=== PATIENT | female | born 1945 | race Caucasian/White ===

== ENCOUNTER 2019-07-24 22:27 | Observation (INO) | payer MEDICARE ==
[2019-07-24] MEDS ORDERED: TOPICAL LIDOCAINE W/ EPI 5 ML TOP ONE (22:33)
--- NOTE | 2019-07-24 22:38 | Emergency Department Record ---
History of Present Illness - General Chief complaint: Nosebleed/epistaxis Stated complaint: NOSE BLEED Time Seen by Provider: 07/24/19 22:33 Source: Patient Mode of Arrival: Ambulatory Limitations: No limitations - History of Present Illness Initial comments: 74 yo female presents to ED for evaluation of a nose bleed from the left nare that began almost 3 hours ago. 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 Patient denies injury or trauma to the nose, bleeding began after sneezing this evening. Patient denies use of anticoagulation medications. Patient reports that she is usually able to get her bleeding stopped at home. Patient does not see an ENT regularly. MD complaint: Epistaxis Onset/Timin -: Hour(s) Location: Nose Severity: Moderate Consistency: Constant Improves with: Pressure Worsens with: None Context-Epistaxis: History of similar - Related Data Home Medications Medication Instructions Recorded Confirmed Last Taken Denosumab [Prolia] 60 mg SQ 07/24/19 06/04/17 Allergies Allergy/AdvReac Type Severity Reaction Status Date / Time No Known Drug Allergies Allergy Verified 07/24/19 22:33 Travel Screening - Travel/Exposure Within Last 30 Days Have you traveled within the last 30 days?: No - Travel/Exposure Within Last Year Have you traveled outside the [place] in the last year?: No - Additonal Travel Details Have you been exposed to anyone with a communicable illness?: No Review of Systems Constitutional: Denies: Chills, Fever, Malaise, Night sweats Eyes: Denies: Eye discharge, Eye pain ENT: Reports: Epistaxis. Denies: Congestion, Ear pain Respiratory: Denies: Cough, Dyspnea Cardiovascular: Denies: Chest pain, Dyspnea on exertion Endocrine: Denies: Fatigue, Heat or cold intolerance Gastrointestinal: Denies: Abdominal pain, Nausea, Vomiting Genitourinary: Denies: Incontinence, Retention Musculoskeletal: Denies: Arthralgia, Back pain Skin: Denies: Bruising, Change in color Neurological: Denies: Abnormal gait, Confusion, Headache, Tingling, Tremors Psychiatric: Denies: Anxiety Hematological/Lymphatic: Reports: Easy bleeding. Denies: Anemia, Blood Clots Past Medical History - SOCIAL HISTORY Smoking Status: Never smoker Family Medical History Any Significant Family History?: No Physical Exam - General General Appearance: Alert, Oriented x3, Cooperative, Mild distress Limitations: No limitations - Head Head exam: Atraumatic, Normocephalic, Normal inspection Head exam detail: negative: Abrasion, Contusion, York's sign, General tenderness, Hematoma, Laceration - Eye Eye exam: Normal appearance. negative: Conjunctival injection, Periorbital swelling, Periorbital tenderness, Scleral icterus - ENT Ear exam: negative: Auricular hematoma, Auricular trauma Nasal Exam: Dried blood. negative: Discharge, Foreign body Mouth exam: negative: Drooling, Laceration, Muffled voice, Tongue elevation - Neck Neck exam: Normal inspection. negative: Meningismus, Tenderness - Respiratory Respiratory exam: Normal lung sounds bilaterally. negative: Respiratory distress, Rhonchi, Stridor, Wheezes - Cardiovascular Cardiovascular Exam: Normal rhythm, Normal heart sounds, Tachycardia - GI/Abdominal GI/Abdominal exam: Soft. negative: Rebound, Rigid, Tenderness - Rectal Rectal exam: Deferred - exam: Deferred - Extremities Extremities exam: negative: Pedal edema, Tenderness - Neurological Neurological exam: Alert, Oriented X3. negative: Motor sensory deficit - Psychiatric Psychiatric exam: Normal affect, Normal mood - Skin Skin exam: Normal color. negative: Abrasion Type of lesion: negative: abrasion Course - Reevaluation(s) Reevaluation #1: 07/24/19 22:56 TLE-soaked cotton balls were removed from the left nare, no active bleeding is present. There does appear to be clots deep within the left nare. Risk and benefit of placing anterior pack vs. leaving the left nare open (and return for re-bleeding) were discussed, patient is declining anterior packing at this time. Will monitor in ED for another 30 minutes for re-bleeding symptoms. Reevaluation #2: 07/24/19 23:38 Patient's Hgb 6.8 Will type and screen, transfuse 2 Units PRBCs Will admit the patient for further evaluation and repeat H&H in the morning. Reevaluation #3: 07/25/19 06:46 Case was discussed with Nohemy Ace NP, will accept admission at this time. Medical Decision Making - Lab Data Result diagrams: 07/24/19 23:25 Disposition Disposition: Admit Clinical Impression: Epistaxis, recurrent Anemia Qualifiers: Anemia type: unspecified type Qualified Code(s): D64.9 - Anemia, unspecified Disposition: Still a Patient at [facility] Decision to Admit: Admit from ER Decision to Admit Date: 07/24/19 Decision to Admit Time: 23:39 Condition: (2) Stable Time of Disposition: 23:40 Quality - Quality Measures Quality Measures: N/A - Blood Pressure Screening Does Patient Have Any of the Following: No Blood Pressure Classification: Normal BP Reading Systolic Measurement: 96 Diastolic Measurement: 53 Screening for High Blood Pressure: < Normal BP, F/U Not Required > [G8783]
[2019-07-24 23:29] LABS: HEMATOCRIT 23.7 % (35.0-47.0)
[2019-07-24 23:36] LABS: HEMOGLOBIN 6.8 gm/dl (11.6-16.0)
[2019-07-25 00:40] LABS: ABO GROUP A; RH TYPE POSITIVE
[2019-07-25 00:44] LABS: ANTIBODY SCREEN NEGATIVE (NEGATIVE)
[2019-07-25] MEDS ORDERED: LEVETIRACETAM 500 MG TABLET PO SCH (00:45)
[2019-07-25 00:50] LABS: IMMED. SPIN CROSSMATCH COMPATIBLE
[2019-07-25] MEDS: LEVETIRACETAM 500 MG TABLET PO SCH ×2 (00:50→09:56)
[2019-07-25] MEDS ORDERED: SIMVASTATIN 10MG TABLET PO SCH (00:55)
[2019-07-25 04:30] LABS: IMMED. SPIN CROSSMATCH COMPATIBLE
--- NOTE | 2019-07-25 10:04 | History & Physical ---
History of Present Illness - Date of Service Date of Service for History & Physical: 07/25/19 - History of Present Illness Admitting Diagnosis: Anterior epistaxis. Severe anemia History of Present Illness: 74 yo female presents for uncontrolled nose bleed for 3 hours. 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 Pt attempted direct pressure but bleeding was significant and presented to [facility] ER. Pt reportedly refused packing, direct pressure was able to stop bleeding but H-H was 6.8-23.7. Pt states she was eating, sneezed with food in her mouth and the nose began bleeding heavier than normal. 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 Cervical disc fusion r/t trauma. 07/25/19 Pt resting comfortably in bed, no active bleeding noted right nare. Pt does have upper extremity weakness any ataxia. Moving lower extremities without difficulty. Lungs CTA, heart rate reg V/ murmur noted. Pulses +3 upper and lower. No edema, no SOB, pt denies pain. Ordering BMP, CBC and possible d/c to have pt f/u with PCP within 1 week. Pt suggested to follow with ENT. PCP Luis Travel Screening - Travel/Exposure Within Last 30 Days Have you traveled within the last 30 days?: No Location Detail:: [facility] - Travel/Exposure Within Last Year Have you traveled outside the [place] in the last year?: No - Additonal Travel Details Have you been exposed to anyone with a communicable illness?: No - Travel Symptoms Symptom Screening: None Review of Systems Constitutional: Denies: Chills, Fever, Malaise, Night sweats Eyes: Denies: Eye discharge, Eye pain ENT: Reports: Epistaxis. Denies: Congestion, Ear pain Respiratory: Denies: Cough, Dyspnea Cardiovascular: Denies: Chest pain, Dyspnea on exertion Endocrine: Denies: Fatigue, Heat or cold intolerance Gastrointestinal: Denies: Abdominal pain, Nausea, Vomiting Genitourinary: Denies: Incontinence, Retention Musculoskeletal: Denies: Arthralgia, Back pain Skin: Denies: Bruising, Change in color Neurological: Denies: Abnormal gait, Confusion, Headache, Tingling, Tremors Psychiatric: Denies: Anxiety Hematological/Lymphatic: Reports: Easy bleeding. Denies: Anemia, Blood Clots Past Medical History - SOCIAL HISTORY Smoking Status: Never smoker - RESPIRATORY Hx Respiratory Disorders: No - CARDIOVASCULAR Hx Cardio Disorders: Yes Hx Irregular Heartbeat: Yes (h/o afib) Comment:: aortic dissection w/valve replacement 2003; carotid dissection - NEURO Hx CVA: Yes (during heart surgery) Hx Seizures: Yes - GI Hx GI Disorders: No Hx Wt Loss/Wt Gain: Yes (after femur fx in December 2018) - Hx Genitourinary Disorders: No - ENDOCRINE Hx Endocrine Disorders: No - MUSCULOSKELETAL Hx Musculoskeletal Disorders: Yes Hx Back Injury: Yes (cervical fx and fusion) Hx Osteoporosis: Yes - PSYCH Hx Psych Problems: Yes Hx Depression: Yes - HEMATOLOGY/ONCOLOGY Hx Hematology/Oncology Disorders: Yes Hx Anemia: Yes Hx Blood Disorders: Yes (Xmyse-Uamox-Wihwb Syndrome) Hx Bruising: Yes Hx Blood Transfusions: Yes Hx Blood Transfusion Reaction: No Family Medical History Any Significant Family History?: No H&P Meds/Allergies - Allergies Allergies: Allergies Allergy/AdvReac Type Severity Reaction Status Date / Time No Known Drug Allergies Allergy Verified 07/24/19 22:33 - Home Medications Home Medications Medication Instructions Recorded Confirmed Last Taken Denosumab [Prolia] 60 mg SQ 07/24/19 06/04/17 - Active Medications Active Medications: Current Medications Levetiracetam (Keppra) 1,500 mg PO 0900,2100 [facility] Last Admin: 07/25/19 09:56 Dose: 1,500 mg Documented by: Simvastatin (Zocor) 20 mg PO QHS [facility] Physical Exam - Vital Signs Vital Signs: Vital Signs - Last 24 Hrs Temp Pulse Pulse Resp BP Pulse Ox 07/25/19 07:19 97.7 F 72 16 93/42 98 07/25/19 04:00 97.7 F 86 18 96/53 96 07/25/19 00:46 97.9 F 101 H 18 96/44 96 07/24/19 23:12 105 H 16 89/53 97 07/24/19 22:28 98.0 F 113 H 18 100/66 99 - General General Appearance: Alert, Oriented x3, Cooperative, No acute distress Limitations: No limitations - Head Head exam: Atraumatic, Normocephalic, Normal inspection Head exam detail: negative: Abrasion, Contusion, York's sign, General tenderness, Hematoma, Laceration - Eye Eye exam: Normal appearance. negative: Conjunctival injection, Periorbital swelling, Periorbital tenderness, Scleral icterus - ENT Ear exam: negative: Auricular hematoma, Auricular trauma Nasal Exam: Dried blood. negative: Active bleeding, Discharge, Foreign body Mouth exam: negative: Drooling, Laceration, Muffled voice, Tongue elevation - Neck Neck exam: Normal inspection. negative: Meningismus, Tenderness - Respiratory Respiratory exam: Normal lung sounds bilaterally. negative: Respiratory distress, Rhonchi, Stridor, Wheezes - Cardiovascular Cardiovascular Exam: Regular rate, Normal rhythm, Systolic murmur Peripheral Pulses: 3+: Radial (R), Radial (L), Dorsalis Pedis (R), Dorsalis Pedis (L) - GI/Abdominal GI/Abdominal exam: Soft. negative: Rebound, Rigid, Tenderness - Rectal Rectal exam: Deferred - exam: Deferred - Extremities Extremities exam: negative: Pedal edema, Tenderness - Neurological Neurological exam: Alert, Oriented X3. negative: Motor sensory deficit - Psychiatric Psychiatric exam: Normal affect, Normal mood - Skin Skin exam: Normal color. negative: Abrasion Type of lesion: negative: abrasion Results - Labs Result Diagrams: 07/25/19 09:52 Labs Last 24 Hours: Laboratory Results - last 24 hr 07/24/19 07/24/19 07/25/19 23:25 23:45 03:45 Hgb 6.8 L* Hct 23.7 L ABO Group Rh Factor Antibody Screen Crossmatch Yes Yes 07/25/19 23:45 Hgb Hct ABO Group A Rh Factor Positive Antibody Screen Negative Crossmatch VTE H&P Assessment - Risk for VTE Risk for VTE: Yes Risk Level: High Risk Assessment Date: 07/25/19 Risk Assessment Time: 10:39 VTE Orders Placed or Will Be Placed: No VTE Reason for No Prophylaxis: Contraindicated (recent active bleeding) Plan - Detailed Diagnosis and Plan (1) Anemia Current Visit: Yes Status: Acute Qualifiers: Anemia type: unspecified type Qualified Code(s): D64.9 - Anemia, unspecified Base Code: D64.9 - ANEMIA, UNSPECIFIED Comment: 07/25/19 -pt reports normal Hgb is 10, 6.8 after 3 hrs active bleeding from right nare -2 units PRBC given, no s/s reaction -repeating labs and potential d/c to have pt f/u with PCP 07/29/19 Hgb 6.8->9.1 Hct 237.->29.5 (2) Epistaxis, recurrent Current Visit: Yes Status: Acute Base Code: R04.0 - EPISTAXIS Comment: 07/25/19 -pt has Bgvzk-Lxkru-rkycc syndrome, causing daily nose bleeds but usually controlled with direct pressure -after 3 hours of active bleeding, pt presented to [facility] ER and bleeding stopped with direct pressure as pt refused packing -bleeding caused anemia req 2 units PRBCs (3) Epilepsy Current Visit: Yes Status: Acute Base Code: G40.909 - EPILEPSY, UNSP, NOT INTRACTABLE, WITHOUT STATUS EPILEPTICUS Comment: 07/25/19 -continue Keppra dosing -seizure precautions maintained (4) DVT prophylaxis Current Visit: Yes Status: Acute Base Code: Z29.9 - ENCOUNTER FOR PROPHYLACTIC MEASURES, UNSPECIFIED Comment: 07/25/19 -high risk for DVT with pt h/o of CVA but recent active bleeding req blood transfusion, contraindicated for anticoagulation tx (5) Full code status Current Visit: Yes Status: Acute Base Code: Z78.9 - OTHER SPECIFIED HEALTH STATUS Comment: 07/25/19 -full code
[2019-07-25 10:11] LABS: ABSOLUTE NEUTROPHIL COUNT 2.74; BASO % 0.7 % (0-6); EOS % 2.2 % (0-6); GRAN % 67.9 % (47-80); HEMATOCRIT 29.5 % (35.0-47.0); HEMOGLOBIN 9.1 gm/dl (11.6-16.0); LYMPH % 19.8 % (16-45); MEAN CELL VOLUME 75.6 fl (81-97); MEAN CORPUSCULAR HEMOGLOBIN 23.3 pg (27-33); MEAN CORPUSCULAR HGB CONC 30.8 g/dl (32-36); MEAN PLATELET VOLUME 9.1 fl (7.4-10.4); MONO % 9.4 % (0-9); PLATELET COUNT 176 K/uL (130-400); RED CELL DISTRIBUTION WIDTH 19.7 % (11.5-14.5)
--- NOTE | 2019-07-25 10:50 | Discharge Summary ---
Providers Discharge Summary Date: 07/25/19 Date of admission: 07/25/19 00:10 Expected Date of Discharge: 07/25/19 Attending physician: ZARIA TIERNEY Primary care physician: MARK STARKS D.O. Physical Exam - Vital Signs Vital Signs: Vital Signs - Last 24 Hrs Temp Pulse Pulse Resp BP Pulse Ox 07/25/19 09:00 16 07/25/19 07:19 97.7 F 72 16 93/42 98 07/25/19 04:00 97.7 F 86 18 96/53 96 07/25/19 00:46 97.9 F 101 H 18 96/44 96 07/24/19 23:12 105 H 16 89/53 97 07/24/19 22:28 98.0 F 113 H 18 100/66 99 - General General Appearance: Alert, Oriented x3, Cooperative, No acute distress Limitations: No limitations - Head Head exam: Atraumatic, Normocephalic, Normal inspection Head exam detail: negative: Abrasion, Contusion, York's sign, General tenderness, Hematoma, Laceration - Eye Eye exam: Normal appearance. negative: Conjunctival injection, Periorbital swelling, Periorbital tenderness, Scleral icterus - ENT Ear exam: negative: Auricular hematoma, Auricular trauma Nasal Exam: Dried blood. negative: Active bleeding, Discharge, Foreign body Mouth exam: negative: Drooling, Laceration, Muffled voice, Tongue elevation - Neck Neck exam: Normal inspection. negative: Meningismus, Tenderness - Respiratory Respiratory exam: Normal lung sounds bilaterally. negative: Respiratory distress, Rhonchi, Stridor, Wheezes - Cardiovascular Cardiovascular Exam: Regular rate, Normal rhythm, Systolic murmur Peripheral Pulses: 3+: Radial (R), Radial (L), Dorsalis Pedis (R), Dorsalis Pedis (L) - GI/Abdominal GI/Abdominal exam: Soft. negative: Rebound, Rigid, Tenderness - Rectal Rectal exam: Deferred - exam: Deferred - Extremities Extremities exam: negative: Pedal edema, Tenderness - Neurological Neurological exam: Alert, Oriented X3. negative: Motor sensory deficit - Psychiatric Psychiatric exam: Normal affect, Normal mood - Skin Skin exam: Normal color. negative: Abrasion Type of lesion: negative: abrasion Hospitalization - Hospitalization Admission Diagnosis: Anterior epistaxis. Severe anemia - Problem List/Discharge Diagnosis (1) Anemia Current Visit: Yes Status: Acute Discharge Diagnosis: Anemia type: unspecified type Qualified Code(s): D64.9 - Anemia, unspecified Base Code: D64.9 - ANEMIA, UNSPECIFIED Comment: 07/25/19 -pt reports normal Hgb is 10, 6.8 after 3 hrs active bleeding from right nare -2 units PRBC given, no s/s reaction -repeating labs and potential d/c to have pt f/u with PCP 07/29/19 Hgb 6.8->9.1 Hct 237.->29.5 (2) Epistaxis, recurrent Current Visit: Yes Status: Acute Base Code: R04.0 - EPISTAXIS Comment: 07/25/19 -pt has Rwblw-Xmiww-oxjds syndrome, causing daily nose bleeds but usually controlled with direct pressure -after 3 hours of active bleeding, pt presented to [facility] ER and bleeding stopped with direct pressure as pt refused packing -bleeding caused anemia req 2 units PRBCs (3) Epilepsy Current Visit: Yes Status: Acute Base Code: G40.909 - EPILEPSY, UNSP, NOT INTRACTABLE, WITHOUT STATUS EPILEPTICUS Comment: 07/25/19 -continue Keppra dosing -seizure precautions maintained (4) DVT prophylaxis Current Visit: Yes Status: Acute Base Code: Z29.9 - ENCOUNTER FOR PROPHYLACTIC MEASURES, UNSPECIFIED Comment: 07/25/19 -high risk for DVT with pt h/o of CVA but recent active bleeding req blood transfusion, contraindicated for anticoagulation tx (5) Full code status Current Visit: Yes Status: Acute Base Code: Z78.9 - OTHER SPECIFIED HEALTH STATUS Comment: 07/25/19 -full code - Hospitalization Course Hospital Course: 74 yo female presents for uncontrolled nose bleed for 3 hours. 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 Pt attempted direct pressure but bleeding was significant and presented to [facility] ER. Pt reportedly refused packing, direct pressure was able to stop bleeding but H-H was 6.8-23.7. Pt states she was eating, sneezed with food in her mouth and the nose began bleeding heavier than normal. 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 Cervical disc fusion r/t trauma. 07/25/19 Pt resting comfortably in bed, no active bleeding noted right nare. Pt does have upper extremity weakness any ataxia. Moving lower extremities without difficulty. Lungs CTA, heart rate reg V/ murmur noted. Pulses +3 upper and lower. No edema, no SOB, pt denies pain. Ordering BMP, CBC and possible d/c to have pt f/u with PCP within 1 week. Pt suggested to follow with ENT. PCP Luis Abnormal Labs: Abnormal Lab Results 07/24/19 07/25/19 Range/Units 23:25 09:52 WBC 4.0 L (4.2-12.2) K/uL Hgb 6.8 L* 9.1 L (11.6-16.0) gm/dl Hct 23.7 L 29.5 L (35.0-47.0) % MCV 75.6 L (81-97) fl MCH 23.3 L (27-33) pg MCHC 30.8 L (32-36) g/dl RDW 19.7 H (11.5-14.5) % Monocytes % 9.4 H (0-9) % Condition at Discharge: (2) Stable Discharge Medications - Discharge Medications Home Medications: Ambulatory Orders Levetiracetam [Keppra] 1,500 mg PO Q12H tab 10/25/18 [Last Taken 07/24/19 08:00] Simvastatin 20 mg PO QD tab 10/25/18 [Last Taken 07/23/19 22:00] Denosumab [Prolia] 60 mg SQ 07/24/19 [Last Taken 06/04/17] Discharge Plan - Discharge Instructions Activity at Discharge: Increase Activity as Tolerated Diet at Discharge: Advance to Usual Diet Instructions: Nosebleed (ED) Additional Instructions: Activity: Increase Activity as Tolerated Diet: Advance to Usual Diet Consults: [] Follow Up: [Appointment at [facility] on July 29 at 11:15] Dressing/Wound Care: (Type) (Change) Additional: [] Continue home medication Return to the emergency department if your nose bleeds and is unable to stop Quality Measures - Quality Measures Quality Measures: Advance Directives, Documentation of Current Medications in Medical Record, Elder Maltreatment Screen and Follow-Up Plan, Screening for High Blood Pressure and F/U Documented - Current Medications Quality Measure: Measure #130: Documentation of Current Medications Documentation of Current Medications: <Current Medications Documented/Reviewed> [[id number]] - Blood Pressure Screening Quality Measure: Screening for High Blood Pressure and Follow-Up Documented Does Patient Have Any of the Following: No Blood Pressure Classification: Normal BP Reading Systolic Measurement: 93 Diastolic Measurement: 42 Screening for High Blood Pressure: < Normal BP, F/U Not Required > [Y0741] - Advance Directives Quality Measure: Measure #47: Care Plan Advance Directives Established: Yes Advance Directives Information Provided To Patient: No Advance Directives on File: No Living Will: Yes Power of Manager Multicultural: Yes Power of Manager Multicultural Name: KAIA BLAKE Advance Care Planning: <Care Plan/Decision Maker Documented; Discussed & Documented> [[id number]] - Elder Abuse Suspicion Index Screening: Elder Abuse Suspicion Index Screening Rely on people for bathing, dressing, shopping, banking, etc: No Prevented from getting food, clothes, medication, etc: No Made to feel shamed or threatened by someone: No Forced to sign papers or use money against will: No Feel afraid, touched in ways not wanted or hurt physically: No Poor eye contact, withdrawn, malnourished, cuts or bruises: No Screening Result: Negative result EASI Reference Information: Eufemia DE ANDA, Clinton C, Melissa D, [place].Development and validation of a tool to assist physicians identification of elder abuse: The Elder Abuse Suspicion Index (EASI ). Journal of Elder Abuse and Neglect, 2008; 20 (3): 276-300. - Elder Maltreatment Screen Quality Measures: Elder Maltreatment Screen and Follow-Up Plan Elder Maltreatment Screen: <Negative, No Follow-Up Plan Required> [G8734]
[2019-07-25 11:13] LABS: BLOOD UREA NITROGEN 23 mg/dL (8-23); CREATININE 0.5 mg/dL (0.5-0.9); EST GLOMERULAR FILTRATION RATE > 60 mL/min
[2019-07-25 11:16] LABS: GLUCOSE,RANDOM 137 mg/dL (74-109)
[2019-07-25] MEDS ORDERED: SIMVASTATIN 20 MG TABLET PO SCH (22:00)
== END 2019-07-25 13:25 | disposition home or self-care (01) ==
LOC: ER 22:27 → MEDSURG 07-25 00:10
PROVIDERS: ADMIT Internal Medicine; ATTEND Internal Medicine
DX: R04.0 Epistaxis (principal); D64.9 Anemia, unspecified; I78.0 Hereditary hemorrhagic telangiectasia; I48.91 Unspecified atrial fibrillation; Z86.79 Personal history of other diseases of the circulatory system; Z95.4 Presence of other heart-valve replacement; G93.9 Disorder of brain, unspecified; G40.909 Epilepsy, unspecified, not intractable, without status epilepticus; G83.9 Paralytic syndrome, unspecified; Z29.9 Encounter for prophylactic measures, unspecified
CPT/HCPCS: 85025; 85018; 85014; 80048; 86900; 86901; 86850; G0378; P9016; J3490; 36430; 99220; 99285